=== PATIENT | male | born 1970 | race African-American/Black ===

== ENCOUNTER 2020-04-13 12:16 | Inpatient (IN) ==
[2020-04-13] MEDS ORDERED: SODIUM CHLORIDE 0.9% 1,000 ML IV STA (12:55)
[2020-04-13] MEDS ORDERED: LIDOCAINE 1%/EPI INJ 20 ML VIAL ONE (13:12)
[2020-04-13 13:39] LABS: ABG Base Excess -24.1 MMOL/L (-2.5-2.5); ABG HCO3 8.2 MMOL/L (20-26); ABG Oxygen Saturation 92.9 % (95-100); ABG PO2 92.4 MM HG (80-95); ABG TCO2 4.9 MMOL/L (23-27)
[2020-04-13 13:40] LABS: ABG PCO2 17.4 MM HG (35-48); ABG PH 7.096 (7.35-7.45)
[2020-04-13] MEDS ORDERED: INSULIN REGULAR 100 UNIT/ML IV STA (13:42)
[2020-04-13 13:53] LABS: Basophils # 0.1 10*3/uL (0.0-0.2); Basophils % 0.3 % (0.0-0.8); Hematocrit 48.7 VOL% (42.0-52.0); Hemoglobin 15.4 GM/DL (14.0-18.0); Immature Granulocytes % 2.3 %; Immature Granulocytes Absolute 0.37 #; Lymphocytes # 1.4 10*3/uL (1.4-4.0); Lymphocytes % 8.3 % (21.2-54.2); Mean Corpuscular HGB Conc 31.6 GM/DL (32-36); Mean Platelet Volume 11.4 FL (9.6-12.0); Monocytes % 10.6 % (1.7-12.7); Neutrophils % 78.5 % (38.7-73.9); Platelet Count 290 T/CUMM (130-400); Red Blood Count 5.87 MC/CUMM (3.8-5.5); White Blood Count 16.3 T/CUMM (4-12)
[2020-04-13] MEDS ORDERED: ALBUTEROL 2.5 MG/3 ML NEB RESP TX PRN (14:14)
[2020-04-13] MEDS ORDERED: INSULIN REGULAR DRIP 100 ML IV PRN (14:17)
[2020-04-13] MEDS ORDERED: SODIUM PHOSPHATE IV PRN (14:18)
[2020-04-13] MEDS ORDERED: SODIUM CHLORIDE 0.9% 1,000 ML IV ONE (14:18)
[2020-04-13] MEDS ORDERED: SODIUM CHLORIDE 0.9% IV PRN (14:18)
[2020-04-13] MEDS ORDERED: MAGNESIUM SULF RIDER 2 GM in PREMIX 1 EACH IV PRN (14:18)
[2020-04-13] MEDS ORDERED: SODIUM BICARB INJ 100 MEQ in STERILE WATER INJ 400 ML IV PRN (14:18)
[2020-04-13] MEDS ORDERED: MAGNESIUM SULF RIDER 4 GM in PREMIX 1 EACH IV PRN (14:18)
[2020-04-13] MEDS ORDERED: POTASSIUM CHLORIDE RIDER 10 MEQ in PREMIX 1 EACH IV PRN (14:18)
[2020-04-13] MEDS ORDERED: DEXTROSE 50% 25 GM/50 ML VIAL IV PRN ×2 (14:18)
[2020-04-13] MEDS ORDERED: INSULIN REGULAR 100 UNIT/ML IV ONE (14:18)
[2020-04-13 14:21] LABS: Bilirubin,Urine Negative (Negative); Blood, Urine Negative (Negative); Glucose,Urine (UA) >=500 mg/dL (Negative); Hyaline Casts,Urine 7 /LPF (0-3); Ketones,Urine 20 mg/dL (Negative); Mucus,Urine Occasional /LPF (Occasional); Nitrite,Urine Negative (Negative); Protein,Urine Negative; RBC,Urine 1 /HPF (0-4); Squamous Epithelial Cell,Urine Occasional /HPF (0-10); Urine Appearance CLEAR (Clear); Urine Color Straw (Yellow); Urine Specific Gravity 1.018 (1.001-1.035); Urine Urobilinogen < 2.0 EU/DL (0.2-1.0); WBC,Urine <1 /HPF (0-6)
[2020-04-13] MEDS ORDERED: INSULIN REGULAR DRIP 100 ML IV SCH (14:30)
[2020-04-13 14:32] LABS: Bilirubin,Total 0.6 MG/DL (0.2-1.0); Calcium 8.5 MG/DL (8.5-10.1); Osmolality,Calculated 349.5 MOS/KG (273-304); Total Protein 6.9 G/DL (6.4-8.3)
[2020-04-13 14:33] LABS: PT Patient Result 10.3 SECS (9.8-11.9); Partial Thromboplastin Time 25.6 SECS (23.9-33.8)
[2020-04-13] MEDS ORDERED: DIPH/TET/ACEL PERT BOOSTER VACCINE 0.5 ML VIAL IM ONE (14:49)
[2020-04-13] MEDS ORDERED: LACTATED RINGERS 2,000 ML IV ONE (15:04)
[2020-04-13 16:47] LABS: Calcium 7.6 MG/DL (8.5-10.1); Osmolality,Calculated 348.8 MOS/KG (273-304)
[2020-04-13] MEDS: SODIUM CHLORIDE 0.9% 1,000 ML IV SCH ×2 (16:50→19:00)
[2020-04-13] MEDS ORDERED: NICOTINE 14 MG/24 HR PATCH TRANSDERM PRN (17:03)
[2020-04-13 17:32] LABS: Bilirubin,Urine Negative (Negative); Blood, Urine Negative (Negative); Glucose,Urine (UA) >=500 mg/dL (Negative); Hyaline Casts,Urine 3 /LPF (0-3); Ketones,Urine 20 mg/dL (Negative); Mucus,Urine Occasional /LPF (Occasional); Nitrite,Urine Negative (Negative); Protein,Urine Negative; RBC,Urine <1 /HPF (0-4); Squamous Epithelial Cell,Urine Occasional /HPF (0-10); Urine Appearance CLEAR (Clear); Urine Color Yellow (Yellow); Urine Specific Gravity 1.017 (1.001-1.035); Urine Urobilinogen < 2.0 EU/DL (0.2-1.0); WBC,Urine 1 /HPF (0-6)
[2020-04-13 19:17] LABS: Calcium 7.9 MG/DL (8.5-10.1); Osmolality,Calculated 337.4 MOS/KG (273-304)
[2020-04-13] MEDS ORDERED: SODIUM CHLORIDE 0.9% 1,000 ML IV SCH (19:19)
[2020-04-13 23:45] LABS: Calcium 7.9 MG/DL (8.5-10.1)
[2020-04-14] MEDS: SODIUM CHLORIDE 0.45% 1,000 ML IV SCH ×5 (01:15→22:34)
[2020-04-14 03:51] LABS: Basophils % 0.1 % (0.0-0.8); Hematocrit 40.5 VOL% (42.0-52.0); Immature Granulocytes % 0.4 %; Immature Granulocytes Absolute 0.06 #; Lymphocytes # 2.1 10*3/uL (1.4-4.0); Lymphocytes % 14.5 % (21.2-54.2); Mean Corpuscular HGB Conc 34.6 GM/DL (32-36); Mean Corpuscular Volume 76.7 FL (87-102); Mean Platelet Volume 10.7 FL (9.6-12.0); Monocytes % 8.4 % (1.7-12.7); Neutrophils % 76.6 % (38.7-73.9); Platelet Count 256 T/CUMM (130-400); Red Blood Count 5.28 MC/CUMM (3.8-5.5); Red Cell Distribution Width 13.7 % (9.3-17.3); White Blood Count 14.4 T/CUMM (4-12)
[2020-04-14 04:21] LABS: Albumin 2.9 G/DL (3.4-5.0); Bilirubin,Total 0.7 MG/DL (0.2-1.0); Calcium 7.8 MG/DL (8.5-10.1); Osmolality,Calculated 333.7 MOS/KG (273-304); Total Protein 6.5 G/DL (6.4-8.3)
[2020-04-14] MEDS ORDERED: ROCURONIUM 500 MG in SODIUM CHLORIDE 0.9% 500 ML IV PRN (04:25)
[2020-04-14] MEDS ORDERED: ROCURONIUM 100 MG/10 ML VIAL IV ONE (04:25)
[2020-04-14] MEDS ORDERED: NOREPINEPHRINE 8 MG in SODIUM CHLORIDE 0.9% 242 ML IV PRN (04:25)
[2020-04-14 04:41] LABS: ABG Base Excess -3.3 MMOL/L (-2.5-2.5); ABG HCO3 20.8 MMOL/L (20-26); ABG Oxygen Saturation 96.7 % (95-100); ABG PCO2 34.9 MM HG (35-48); ABG PH 7.394 (7.35-7.45); ABG PO2 97.6 MM HG (80-95); ABG TCO2 21.9 MMOL/L (23-27); Allen Test Positive; Pt O2 Delivery Device Room Air
[2020-04-14] MEDS ORDERED: DEXT 5% NACL 0.45% KCL 20 MEQ 20 MEQ/1,000 ML BAG IV SCH (05:30)
[2020-04-14] MEDS ORDERED: SODIUM CHLORIDE 0.45% 1,000 ML IV SCH (07:19)
[2020-04-14 07:22] LABS: Calcium 7.8 MG/DL (8.5-10.1); Osmolality,Calculated 329.4 MOS/KG (273-304)
[2020-04-14] MEDS ORDERED: DEXTROSE 50% 25 GM/50 ML VIAL IV PRN (07:51)
[2020-04-14] MEDS ORDERED: GLUCAGON 1 MG VIAL IM PRN (07:51)
[2020-04-14] MEDS: PANTOPRAZOLE 40 MG TABLET PO SCH (08:18)
[2020-04-14] MEDS: INSULIN REGULAR 100 UNIT/ML SUBCUT SCH ×4 (09:19→20:51)
[2020-04-14] MEDS: DEXT 5% NACL 0.45% KCL 20 MEQ 20 MEQ/1,000 ML BAG IV SCH ×2 (09:19→17:00)
[2020-04-14] MEDS: CALCIUM CARBONATE CHEW 500 MG TABLET PO PRN ×2 (10:39→17:52)
[2020-04-14 11:06] LABS: Calcium 7.9 MG/DL (8.5-10.1); Osmolality,Calculated 330.6 MOS/KG (273-304)
[2020-04-14] MEDS: amLODIPine 10 MG TABLET PO SCH (11:59)
[2020-04-14] MEDS: PHENOL 1.4% THROAT SPRAY 177 ML BOTTLE PO PRN ×2 (17:02→20:53)
[2020-04-14] MEDS ORDERED: ALUMINUM/MAGNES/SIMETH MAX STR 30 ML UDCUP PO PRN (17:55)
[2020-04-15] MEDS: INSULIN REGULAR 100 UNIT/ML SUBCUT SCH ×6 (01:07→21:05)
[2020-04-15 05:20] LABS: Basophils % 0.3 % (0.0-0.8); Eosinophils # 0.1 10*3/uL (0.0-0.87); Eosinophils % 0.5 % (0.00-10.9); Hematocrit 38.5 VOL% (42.0-52.0); Hemoglobin 12.9 GM/DL (14.0-18.0); Immature Granulocytes % 0.6 %; Immature Granulocytes Absolute 0.06 #; Lymphocytes # 2.6 10*3/uL (1.4-4.0); Lymphocytes % 24.5 % (21.2-54.2); Mean Corpuscular HGB Conc 33.5 GM/DL (32-36); Mean Platelet Volume 10.5 FL (9.6-12.0); Monocytes % 9.5 % (1.7-12.7); Neutrophils % 64.6 % (38.7-73.9); Platelet Count 196 T/CUMM (130-400); White Blood Count 10.7 T/CUMM (4-12)
[2020-04-15 05:35] LABS: Calcium 8.2 MG/DL (8.5-10.1)
[2020-04-15] MEDS: SODIUM CHLORIDE 0.45% 1,000 ML IV SCH ×2 (06:20→14:29)
[2020-04-15] MEDS ORDERED: INFLUENZA VIRUS VACCINE 0.5 ML SYRINGE IM ONE (09:30)
[2020-04-15] MEDS ORDERED: PNEUMOCOCCAL VACCINE (23 VALENT) 0.5 ML VIAL IM ONE (09:30)
[2020-04-15] MEDS: amLODIPine 10 MG TABLET PO SCH (09:33)
[2020-04-15] MEDS: ONDANSETRON 4 MG/2 ML VIAL IV PRN ×2 (09:39→20:59)
[2020-04-15] MEDS: PANTOPRAZOLE 40 MG TABLET PO SCH (11:05)
[2020-04-15] MEDS: PHENOL 1.4% THROAT SPRAY 177 ML BOTTLE PO PRN ×2 (11:18→21:06)
[2020-04-15] MEDS ORDERED: POLYETHYLENE GLYCOL POWDER 17 GM PACK PO PRN (16:02)
[2020-04-15] MEDS: ACETAMINOPHEN 325 MG TABLET PO PRN (16:40)
[2020-04-15] MEDS: CALCIUM CARBONATE CHEW 500 MG TABLET PO PRN (20:58)
[2020-04-16 04:20] LABS: Basophils % 0.4 % (0.0-0.8); Eosinophils # 0.2 10*3/uL (0.0-0.87); Eosinophils % 2.4 % (0.00-10.9); Hemoglobin 12.8 GM/DL (14.0-18.0); Immature Granulocytes % 0.6 %; Immature Granulocytes Absolute 0.04 #; Lymphocytes # 2.5 10*3/uL (1.4-4.0); Lymphocytes % 34.9 % (21.2-54.2); Mean Corpuscular HGB Conc 33.7 GM/DL (32-36); Mean Corpuscular Volume 77.9 FL (87-102); Mean Platelet Volume 10.3 FL (9.6-12.0); Neutrophils % 49.7 % (38.7-73.9); Platelet Count 168 T/CUMM (130-400); Red Blood Count 4.88 MC/CUMM (3.8-5.5); Red Cell Distribution Width 13.9 % (9.3-17.3); White Blood Count 7.1 T/CUMM (4-12)
[2020-04-16 04:41] LABS: Calcium 8.1 MG/DL (8.5-10.1); Osmolality,Calculated 292.1 MOS/KG (273-304)
[2020-04-16] MEDS: SODIUM CHLORIDE 0.45% 1,000 ML IV SCH ×3 (07:11→17:56)
[2020-04-16] MEDS: INSULIN REGULAR 100 UNIT/ML SUBCUT SCH ×3 (09:39→17:55)
[2020-04-16] MEDS: amLODIPine 10 MG TABLET PO SCH (09:40)
[2020-04-16] MEDS: ACETAMINOPHEN 325 MG TABLET PO PRN (09:40)
[2020-04-16 12:40] VITALS: BP 126/80
== END 2020-04-16 17:20 | disposition home or self-care (01) | DRG 638 ==
LOC: EDUNIT# → EDBD → N.ED 12:16 → SUATTDRO 14:14 → N.EDINP 14:49 → N.CC 15:34 → N.5E 04-14 14:54
PROVIDERS: ADMIT Internal Medicine; ATTEND Internal Medicine